=== PATIENT | female | born 1980 | race African-American/Black ===

== ENCOUNTER 2018-05-03 08:29 | Day surgery (SDC) | payer OTHER ==
[2018-05-03] MEDS ORDERED: Ringers Lactate 1,000 ML IV ONE (08:54)
[2018-05-03] MEDS: CEFAZOLIN/SWI 1gm 1 GM/10 ML SYR ONE ×2 (10:05→10:51)
[2018-05-03] MEDS ORDERED: LIDOCAINE 1% W/EPI 1:100,000 MDV 50 ML VIAL ONE (10:12)
[2018-05-03] MEDS ORDERED: MIDAZOLAM HCL 2 MG/2 ML INJ ONE (10:47)
[2018-05-03] MEDS ORDERED: ONDANSETRON 4 MG/2 ML VIAL ONE (10:47)
[2018-05-03] MEDS ORDERED: LIDOCAINE 1% MPF 5 ML VIAL ONE (10:55)
[2018-05-03] MEDS ORDERED: FENTANYL CITR 100 MCG/2 ML ONE (10:55)
[2018-05-03] MEDS ORDERED: PROPOFOL 200 MG/20 ML VIAL IV ONE (10:55)
[2018-05-03] MEDS ORDERED: KETOROLAC 30 MG/ML INJ ONE (11:19)
[2018-05-03] MEDS ORDERED: GLYCOPYRROLATE 0.2 MG/ML SYR ONE (11:22)
[2018-05-03] MEDS ORDERED: MEPERIDINE HCL 50 MG/ML AMP ONE (11:48)
[2018-05-03] MEDS ORDERED: DIPHENHYDRAMINE 25 MG TAB/CAP ONE (12:05)
[2018-05-03] MEDS ORDERED: HYDROCODONE/APAP 5/325 MG TAB ONE (12:19)
--- NOTE | 2018-05-03 12:55 | OP ---
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 Preoperative Diagnoses: Heavy menstrual bleeding, menorrhagia, dysmenorrhea (AUB-A/O NL). Postoperative Diagnoses: Heavy menstrual bleeding, menorrhagia, dysmenorrhea (AUB-A/O NL). Procedures Performed: Hysteroscopy, endometrial ablation with HTA. Anesthesia: General endotracheal. Complications: No complications. Drains: None. Condition: The patient is stable. Findings: Cavity length was 5 cm, as done with visual measurements with the hysteroscope. Cavity wi dth 4.4 cm. Power 121 fish and the time of ablation 110 seconds. There was an excellent ablation e ffect in the uterine cavity, and the endometrial cavity. It was irrigated and burn tissue removed ge ntly with help of Ken forceps. The patient is a 37-year-old with heavy bleeding. She had a transvaginal ultrasound that showed leio myomata. However, these were not very big. She was not perimenopausal. All the benefits and risks of alternatives were discussed, and she was finally consented for an endometrial ablation because she did not want to have the other alternative of medical therapy. She was done with childbearing and h er had a vasectomy, so this lady was brought in. She understood that she does have a risk of getting if there is a change in partner and postablation pregnancies could have compl ications. After understanding all this, she was consented. After a gram of Ancef was given, she was taken back to the OR, placed in a supine fashion. After general anesthesia was given, she was placed in a dors al lithotomy position using Rohit stirrups. Pelvic exam was performed and was found to be normal wit h a 6-8 weeks size uterus. Uterus was mobile. No adnexal masses. The speculum was placed to expose the cervix. Anterior lip grasped with 2 Allis clamps. Prep x3 wit h Betadine was done. Diagnostic hysteroscope was used to enter the cervical canal and traverse it un eugene direct visualization into the uterine cavity. The sounding length was 9 cm. The cervical length to the internal os on visualization was 4 cm. The cavity length was calculated to be 5 cm. The cer vix had to be dilated since the NovaSure device did not easily insert through the cervix, and dilated to 14-Lith[place]ian. Then, the NovaSure device was inserted and was deployed. The fan opened up completel y and then the final cavity width was 4.4 cm. After occluding the external cervical os with the help of the occluder, and the hand with which this was held was also on the Allis clamps. Then, ablation cycle was started, and it took 110 seconds for completion of the cycle without any interruption. On ce this was done, we removed this. Diagnostic hysteroscopy was performed and looked thoroughly. The re was an excellent ablation effect globally. The ablated tissue that was coagulated was floating fr ee. Some of it was irrigated using the hysteroscope. However, the rest was taken out with the help of Freddie forceps carefully without scraping the ly. There was very minimal bleeding. Franko dow. Instrument, needle, and sponge counts were done and were correct at the end of the case. The patient was recovered in the OR and taken to the PACU in stable condition. JUWAN/KATIE Voice ID: [id number] Report ID: [id number]
[2018-05-03 13:09] VITALS: BP 132/77; TEMP 97.4; O2SAT 97
[2018-05-03] MEDS ORDERED: IBUPROFEN 400 MG TAB ONE (13:09)
== END 2018-05-03 14:09 | disposition home or self-care (01) ==
LOC: OR 08:29
PROVIDERS: ATTEND Obstetrics & Gynecology
PROC: 0U5B8ZZ Destruction of Endometrium, Via Natural or Artificial Opening Endoscopic (ICD-10-PCS; principal; 2018-05-03 10:30)
DX: N92.0 Excessive and frequent menstruation with regular cycle (principal); N94.6 Dysmenorrhea, unspecified; I10 Essential (primary) hypertension
CPT/HCPCS: 81025; J0690; J2175; J2250; J2405; J3010